=== PATIENT | female | born 1975 | race Caucasian/White ===

== ENCOUNTER 2021-02-07 18:41 | Inpatient (IN) | payer SELFPAY ==
[2021-02-07] VITALS (25 sets, daily range): BP systolic 125–169; BP diastolic 79–96; PULSE 80–99; RESP 11–29; TEMP 37.5; O2SAT 97–100
--- NOTE | ~2021-02-07 | US_ITS ---
EXAMINATION: US abdomen limited EXAM DATE: 02/08/2021 14:46 INDICATION: Pancreatitis/Abnormal LFT's. TECHNIQUE: Multiple grayscale and Doppler images of the abdomen right upper quadrant were obtained (b y a technologist who performed the scan) and subsequently reviewed. There is no prior study for josh sandhu. FINDINGS: The pancreatic head and body are normal in appearance. The pancreatic tail is not visualized. Please note that acute uncomplicated pancreatitis typically does not have ultrasound findings. The liver ochoa s normal echogenicity and contour. There is 1 cm liver cyst. There is no evidence of intrahepatic b iliary duct dilation. Portal venous flow was seen in the hepatopedal, normal direction and has elizabeth l Doppler waveform. No right-sided hydronephrosis. Common bile duct measures 6 mm, which is normal. The gallbladder fossa is unremarkable. IMPRESSION: 1. Unremarkable abdominal ultrasound exam. Reviewed, dictated and finalized at location B.
--- NOTE | ~2021-02-07 | CT_ITS ---
EXAMINATION: CT abdomen pelvis w con DATE: 02/07/2021 21:21 INDICATION: Epigastric abdominal pain. TECHNIQUE: Computed tomography (CT) of the abdomen and pelvis was performed with 100 mL Omnipaque 350 intravenous contrast. Automated exposure control and iterative reconstruction technique were employe d. The dose-length product was 304.46 mGy-cm. COMPARISON: Chest single view 02/07/2021 FINDINGS: The visualized portions of the lung bases demonstrate mild dependent atelectasis. There are mild peripheral airspace opacities in right lower lobe. No pleural effusion. The heart size is elizabeth l. No pericardial effusion. There is a 10 mm cyst in the liver. There are changes of cholecystectomy. The spleen is normal. There is fat stranding around the pancreas, consistent with acute interstitial pancreatitis. The adrenal glands and kidneys are normal. There are no dilated loops of bowel. The ap pendix is normal. There is a small volume of ascites. There are no pathologically enlarged lymph node s. The bones are unremarkable. IMPRESSION: 1. Acute interstitial pancreatitis. 2. Mild peripheral airspace opacities in right lung lower lobe, consistent with pneumonia. 3. Small volume of ascites. Reviewed, dictated and finalized at location A.
--- NOTE | ~2021-02-07 | XR_ITS ---
EXAMINATION: XR chest 1V portable DATE: 02/07/2021 20:02 INDICATION: Shortness of breath. COVID-19 pneumonia. TECHNIQUE: A single frontal view of the chest was obtained. COMPARISON: None. FINDINGS: There is mild scarring at the lung apices. There are mild airspace opacities in right perih ilar region. No pleural effusion or pneumothorax. The heart size is normal. IMPRESSION: 1. Mild airspace opacities in right perihilar region, consistent with pneumonia. 2. Mild scarring at the lung apices. Reviewed, dictated and finalized at location A. IMPRESSION: 1. Mild airspace opacities in right perihilar region, consistent with pneumonia . 2. Mild scarring at the lung apices.
[2021-02-07 19:24] LABS: Hematocrit 35.1 % (37.0-47.0); Hemoglobin 12.6 g/dL (12.0-15.0); Mean Corpuscular HGB Conc 35.9 g/dl (32-36); Mean Corpuscular Hemoglobin 32.5 pg (26-34); Mean Corpuscular Volume 90.5 fl (80-100); Mean Platelet Volume 8.1 fl (7.4-10.4); Platelet Count Result 327 k/mm3 (150-375); Red Blood Count 3.88 M/mm3 (4.2-5.4); White Blood Count 22.5 K/mm3 (4.5-10.0)
[2021-02-07 19:44] LABS: Monocytes Absolute Manual 0.67 K/mm3 (0.1-0.90); Monocytes Percent Manual 3 % (3-9); Neutrophils Percent Manual 81 % (46-73); Total Cells Counted 100
[2021-02-07 19:45] LABS: Platelet Estimate Adequate (Adequate); Smudge Cells FEW
[2021-02-07 19:48] LABS: Alanine Aminotransferase 90 U/L (4-35); Albumin Level 3.4 g/dL (3.5-5.1); Alkaline Phosphatase 110 U/L (38-126); Anion Gap 8 mmol/L (8-16); Aspartate Amino Transferase 106 U/L (14-36); Bilirubin,Total 0.5 mg/dL (0.2-1.3); Blood Urea Nitrogen 10 mg/dL (7-17); Calcium 8.5 mg/dL (8.4-10.2); Carbon Dioxide 30 mmol/L (22-30); Chloride 98 mmol/L (98-107); Estimated CRCL calculation 126 ml/min; Estimated Glomerular Filt Rate > 60; Glucose 84 mg/dL (65-110); Lipase 835 U/L (23-300); Potassium 2.4 mmol/L (3.4-5.0); Sodium 136 mmol/L (137-145)
[2021-02-07 19:54] LABS: Add Urine Microscopic? NO; Appearance Urine Clear (Clear); Bilirubin Urine Negative (Negative); Blood Urine Negative (Negative); Color Urine Straw (Yellow); Glucose Urine UA Negative (Negative); Ketones Urine Negative (Negative); Leukocyte Esterase Ur Negative LEU/UL (Negative); Nitrate Urine Negative (Negative); Protein Urine Negative (Negative); Urobilinogen Urine Negative mg/dL (<2.0)
[2021-02-07] MEDS: SODIUM CHLORIDE 0.9% IV 1,000 ML 125 ML (20:44)
--- NOTE | 2021-02-07 20:59 | PC.NURSE ---
Pt has hx of total hysterectomy. No test needed
[2021-02-07] MEDS: MORPHINE SULFATE (*CRX) 4 MG/ML INJ IV PUSH (21:12)
[2021-02-07] MEDS: ONDANSETRON INJ 4 MG/2 ML VIAL IV PUSH (21:12)
[2021-02-07] MEDS: HYDROmorphone HCL INJ (*CRX) 1 MG/ML SYR IV PUSH (21:46)
--- NOTE | 2021-02-07 22:18 | ED.GENADULT ---
HPI - General Adult General Chief complaint: Nausea/Vomiting/Diarrhea Stated complaint: Complications of COVID Time Seen by Provider: 02/07/21 19:47 Source: patient Mode of arrival: ambulatory Limitations: no limitations History of Present Illness HPI narrative: 45-year-old with history of pancreatitis, diagnosed with Covid on 818 here with complaints of cough shortness of breath upper abdominal pain associated with some nausea and vomiting for past few days. Patient thinks her prior pancreatitis is acting up again. She denies alcohol use. No history of fever or chills. Onset (ago): day(s) (1) Location: abdomen Radiation: non-radiation Severity: moderate Quality: aching Pain Consistency: constant Relieving factors: none Exacerbating factors: none Associated symptoms: nausea/vomiting and shortness of breath Related Data Allergies Allergy/AdvReac Type Severity Reaction Status Date / Time No Known Allergies Allergy Verified 02/07/21 20:07 Review of Systems Review of Systems: All systems reviewed & are unremarkable except as noted in HPI and below Constitutional: Constitutional: Reports no additional constitutional complaints Eyes: Eyes: Reports no additional eye complaints ENT: Reports system reviewed and no additional complaints, except as documented Cardiovascular: Cardiovascular: Reports no additional cardiovascular complaints Respiratory: Respiratory: Reports as per HPI Gastrointestinal: Gastrointestinal: Reports as per HPI Musculoskeletal: Musculoskeletal: Reports no additional musculoskeletal complaints Integumentary/Breasts: Skin/Breast: Reports system reviewed and no additional complaints, except as docu Exam Narrative: GENERAL: Well-appearing, well-nourished, tearful HEAD: Normocephalic, atraumatic. EYES: PERRLA and EOMI. NECK: Supple. CHEST: Clear to auscultation. No respiratory distress. HEART: Regular rate and rhythm. No murmur heard. Normal peripheral pulses. ABDOMEN: Soft, tender in epigastric area, nondistended, normal active bowel sounds. EXTREMITIES: Normal range of motion. No edema. SKIN: Warm, dry, no rash. NEURO: No focal deficits. Alert and oriented x3. PSYCH: Normal mood and affect. Course Course Emergency Course: She was given morphine and Dilaudid for pain control. She was informed about her lab work and CT findings. Will admit to the hospital for pain control and correcting her potassium. Discussed with Dr. Toro agreed to admit the patient. Chest x-ray consistent with pneumonia with elevated white count we will start her on IV Rocephin and Zithromax. Vital Signs Vital signs: Vital Signs Temperature 37.5 C 02/07/21 18:50 Pulse Rate 94 02/07/21 18:50 Respiratory Rate 18 02/07/21 18:50 Blood Pressure 158/82 H 02/07/21 18:50 Pulse Oximetry 98 02/07/21 18:50 Temperature 37.5 C 02/07/21 18:50 Pulse Rate 81 02/07/21 21:02 Respiratory Rate 18 02/07/21 21:02 Blood Pressure 125/79 02/07/21 21:02 Pulse Oximetry 100 02/07/21 21:02 Medical Decision Making Vital Signs Vital Signs: Vital Signs Temperature 37.5 C 02/07/21 18:50 Pulse Rate 94 02/07/21 18:50 Respiratory Rate 18 02/07/21 18:50 Blood Pressure 158/82 H 02/07/21 18:50 Pulse Oximetry 98 02/07/21 18:50 Temperature 37.5 C 02/07/21 18:50 Pulse Rate 81 02/07/21 21:02 Respiratory Rate 18 02/07/21 21:02 Blood Pressure 125/79 02/07/21 21:02 Pulse Oximetry 100 02/07/21 21:02 Lab Data Result diagrams: 02/07/21 19:15 02/07/21 19:15 Labs: Lab Results 02/07/21 02/07/21 02/07/21 Range/Units 19:15 19:15 19:47 WBC 22.5 H (4.5-10.0) K/mm3 RBC 3.88 L (4.2-5.4) M/mm3 Hgb 12.6 (12.0-15.0) g/dL Hct 35.1 L (37.0-47.0) % MCV 90.5 (80-100) fl MCH 32.5 (26-34) pg MCHC 35.9 (32-36) g/dl RDW 14.0 (11.5-14.5) % Plt Count 327 (150-375) k/mm3 MPV 8.1 (7.4-10.4) fl Immature Gran %
[2021-02-07] MEDS: HYDROmorphone HCL INJ (*CRX) 1 MG/ML SYR 0.5 MG IV PUSH (23:35)
--- NOTE | 2021-02-07 23:40 | PC.NURSE ---
Blood cultures drawn and sent peripherally prior to antibiotic administration
[2021-02-08] VITALS (10 sets, daily range): BP systolic 110–149; BP diastolic 66–88; PULSE 80–100; RESP 14–18; TEMP 36.5–37.1; O2SAT 95–99; BMI 25.2
--- NOTE | 2021-02-08 00:46 | ADMGEN ---
This patient, Steff Fu, was admitted to 3 [facility] Surg Room 310-01. Patient/family oriented to hospital policies and general routines including ID bracelet, bed and alarms, visiting hours, pain management, procedures, bathroom and other care routines, personal items, smoking policy, room service/diet, and visiting hours. Information on how to activate the Rapid Response Team has been discussed. Patient/Family are encouraged to report perceived risks to care and to ask questions if they do not understand what they are told or what they should do.
[2021-02-08] MEDS: SODIUM CHLORIDE 0.9% IV 1,000 ML 125 ML IV CONT ×4 (00:56→23:30)
[2021-02-08] MEDS: HYDROmorphone HCL INJ (*CRX) 1 MG/ML SYR IV PUSH ×7 (02:46→23:23)
--- NOTE | 2021-02-08 02:59 | PM.IMHP ---
H&P: HPI History of Present Illness Date/Time: 02/08/21 02:59 Chief Complaint: Epigastric pain Narrative: This is a 45-year-old female with past medical history significant for COPD/emphysema, tobacco dependence, chronic pancreatitis. Patient tested positive for COVID on January 23 both her and her , she has had muscle aches body aches, fevers, chills, cough productive of greenish sputum, poor appetite, generalized malaise, epigastric pain with radiation to the back and is a burning sensation relieved only by pain medication she has not been able to keep anything down or to eat due to the pain she has had pancreatitis in the past and thought that she should better be checked up after it did not improve and got worse over the course of the day. Preliminary workup was significant for chest x-ray with infiltrates and CT of abdomen and pelvis with interstitial pancreatitis, slightly elevated LFTs. Review of Systems Review of Systems: Epigastric pain generalized malaise body aches fevers chills Constitutional: Constitutional: Reports chills, Reports fatigue, Reports fever(s), Reports lethargy, Reports malaise, Reports poor appetite and Reports weakness Eyes: Eyes: Denies change in vision ENT: Denies dysphagia, Denies nasal congestion, Denies nasal discharge, Denies nasal obstruction and Denies odynophagia Cardiovascular: Cardiovascular: Denies irregular heart rhythm, Denies claudication, Denies lightheadedness, Denies radiating jaw, neck or arm pain, Denies palpitations, Denies dyspnea on exertion and Denies orthopnea Respiratory: Respiratory: Reports change in phlegm color and Reports cough Gastrointestinal: Gastrointestinal: Reports abdominal pain, Denies diarrhea, Reports nausea and Denies vomiting Genitourinary: Genitourinary: Reports no additional female genitourinary complaints Musculoskeletal: Musculoskeletal: Reports myalgias Integumentary/Breasts: Skin/Breast: Reports system reviewed and no additional complaints, except as docu Neurologic: Reports system reviewed and no additional complaints, except as documented Psychiatric: Psychiatric: Reports no additional psychiatric complaints Endocrine: Endocrine: Reports no additional endocrine complaints Hematologic/Lymphatic: Hematologic/Lymphatic: Reports no additional hematologic/lymphatic complaints Allergic/Immunologic: Allergic/Immunologic: Reports no additional allergic/immunologic complaints [facility] Family History Family History (Updated 02/08/21 @ 00:17 by Yolanda Torres RN) Mother Acute myocardial infarction Hx of CABG Social History Social History Smoking packs per day: 0.25 Smoking cigarettes per day: 5.0 Smoking status: Current every day smoker Tobacco type: cigarettes Alcohol intake: current Drinks per week: 1 Substance use type: does not use Gender identity (if verbalized by the patient): Female Sexual Orientation (if Verbalized by the Patient): Straight or Heterosexual Spiritual care concerns: No Meds Home Medications and Allergies Home Medications Medication Instructions Recorded Confirmed Type albuterol sulfate 2 puff INHALATION Q4-6H PRN 02/08/21 02/08/21 History alprazolam 0.5 mg PO BID PRN 02/08/21 02/08/21 History hydrocodone-acetaminophen 1 tablet PO Q4-6H PRN 02/08/21 02/08/21 History losartan 50 mg PO DAILY 02/08/21 02/08/21 History Allergies Allergy/AdvReac Type Severity Reaction Status Date / Time No Known Allergies Allergy Verified 02/07/21 20:07 Vital Signs Vital Signs - 24 hr 02/07/21 18:50 02/07/21 19:54 02/07/21 19:57 Temperature 99.5 F Pulse Rate 94 99 97 Respiratory Rate 18 17 11 L Blood Pressure 158/82 H Pulse Oximetry 98 100 02/07/21 20:06 02/07/21 20:09 02/07/21 20:23 Temperature Pulse Rate 89 98 Respiratory Rate 26 H 29 H Blood Pressure Pulse Oximetry 97 02/07/21 20:30 02/07/21 20:40 02/07/21 2
[2021-02-08 07:02] LABS: Basophils Percent Auto 0.2 % (0.2-1.2); Eosinophils Absolute Auto 0.1 K/mm3 (0-0.3); Eosinophils Percent Auto 0.6 % (0-4.4); Hematocrit 31.9 % (37.0-47.0); Hemoglobin 11.3 g/dL (12.0-15.0); Immature Granulocyte Absolute 0.32 K/mm3 (0.00-0.031); Immature Granulocyte Percent A 1.8 % (0-0.5); Lymphocytes Absolute Auto 4.78 K/mm3 (0.9-3.2); Lymphocytes Percent Auto 27.6 % (18.3-44.2); Mean Corpuscular HGB Conc 35.4 g/dl (32-36); Mean Corpuscular Hemoglobin 32.5 pg (26-34); Mean Corpuscular Volume 91.7 fl (80-100); Mean Platelet Volume 8.3 fl (7.4-10.4); Monocytes Absolute Auto 0.8 K/mm3 (0.1-0.6); Monocytes Percent Auto 4.3 % (2.6-8.5); Neutrophils Absolute Auto 11.3 K/mm3 (1.3-6.7); Neutrophils Percent Auto 65.5 % (45.5-73.1); Platelet Count Result 276 k/mm3 (150-375); Red Blood Count 3.48 M/mm3 (4.2-5.4); Red Cell Distribution Width 14.1 % (11.5-14.5); White Blood Count 17.3 K/mm3 (4.5-10.0)
[2021-02-08 07:26] LABS: Alanine Aminotransferase 155 U/L (4-35); Albumin Level 2.9 g/dL (3.5-5.1); Alkaline Phosphatase 144 U/L (38-126); Anion Gap 2 mmol/L (8-16); Aspartate Amino Transferase 280 U/L (14-36); Bilirubin,Total 1.6 mg/dL (0.2-1.3); Blood Urea Nitrogen 6 mg/dL (7-17); Calcium 7.8 mg/dL (8.4-10.2); Carbon Dioxide 34 mmol/L (22-30); Chloride 98 mmol/L (98-107); Estimated CRCL calculation 126 ml/min; Estimated Glomerular Filt Rate > 60; Glucose 102 mg/dL (65-110); Lipase 420 U/L (23-300); Potassium 2.7 mmol/L (3.4-5.0); Sodium 134 mmol/L (137-145)
[2021-02-08] MEDS: ONDANSETRON INJ 4 MG/2 ML VIAL IV PUSH ×2 (07:54→11:49)
[2021-02-08] MEDS: ALPRAZolam (*CRX) 0.5 MG TABLET PO ×2 (09:03→21:17)
[2021-02-08] MEDS: LOSARTAN POTASSIUM 50 MG TABLET PO (09:04)
[2021-02-08] MEDS: ENOXAPARIN 40 MG/0.4 ML SYRINGE SUB-Q (09:05)
[2021-02-08] MEDS: POTASSIUM CHLORIDE 20 MEQ TABLET 40 MEQ PO (09:17)
--- NOTE | 2021-02-08 11:42 | ECG_ITS ---
Measurements Intervals Thomas Rate: 83 P: 9 MA: 138 QRS: 46 QRSD: 81 T: 39 QT: 375 QTc: 442 Interpretive Statements SINUS RHYTHM NORMAL ECG Electronically Signed On 02-08-2021 13:33:38 CDT by Librado Pennington D.O.
--- NOTE | 2021-02-08 11:42 | PM.IMPN ---
Progress Note: A&P Assessment and Plan (1) Community acquired pneumonia: Code(s): J18.9 - Pneumonia, unspecified organism Status: Acute Assessment and Plan: Recent illness with COVID-19 pneumonia. CXR shows airspace opacities in the right perihilar region consistent with pneumonia. She has increased leukocytosis and green sputum. Overall clinical picture appears consistent with secondary bacterial pneumonia. She has been started on azithromycin and ceftriaxone. Sputum culture has been ordered and will await results. Urine Legionella and pneumococcal antigens have been ordered. Supportive care to include bronchodilators, expectorants, and incentive spirometry (2) COVID-19: Code(s): U07.1 - COVID-19 Status: Acute Assessment and Plan: She had a positive COVID-19 test on January 23. She completed a course of steroids prescribed by her PCP. Given onset of illness, she no longer requires any COVID-19 specific treatment or isolation. She is maintaining adequate oxygenation on room air. (3) Acute pancreatitis: Code(s): K85.90 - Acute pancreatitis without necrosis or infection, unspecified Status: Acute Assessment and Plan: Lipase elevated at [address] abdomen/pelvis showed acute interstitial pancreatitis. She endorses significant epigastric pain. Lipase has improved to 420 today with bowel rest. Continue IV fluids. Advanced to clear liquids, she is comfortable trying ice water at this time and will advance as she feels improved. Continue antiemetics and analgesics. RUQ US pending She reports that she has had 2 additional episodes of pancreatitis over the past 6 weeks, seems to be idiopathic based on prior workups completed. She does not drink alcohol. Does not appear to be on any medications that contribute to pancreatitis. She had a cholecystectomy in 1997. She has been seen by GI in [place] but missed her follow-up appointment due to COVID-19 quarantine. Given her history, will consider GI consultation if she is not improving over the next 12-24 hours. She may ultimately benefit from evaluation by a pancreatic specialist given recurrence. (4) Abnormal LFTs (liver function tests): Code(s): R94.5 - Abnormal results of liver function studies Status: Acute Assessment and Plan: May be related to acute pancreatitis. Awaiting RUQ US. Continue to trend LFTs. (5) Acute hypokalemia: Code(s): E87.6 - Hypokalemia Status: Acute Assessment and Plan: Likely secondary to ongoing diarrhea as well as NPO diet. Potassium was 2.7 this morning. She is receiving 40 mEq IV KCl and was given 40 mg p.o. KCl as well. Repeat this afternoon and continue to supplement as needed. Consider scheduled potassium supplementation if remaining low. Check magnesium. (6) COPD (chronic obstructive pulmonary disease): Code(s): J44.9 - Chronic obstructive pulmonary disease, unspecified Status: Acute Assessment and Plan: Not in acute exacerbation. No wheezing on exam. Albuterol inhaler prn. (7) Tobacco dependence: Code(s): F17.200 - Nicotine dependence, unspecified, uncomplicated Status: Acute Assessment and Plan: She smokes 5 cigarettes per day. Denies need for nicotine patch at this time. Smoking cessation has discussed. She has been weaning down her cigarette use with the intention of quitting. (8) Hypertension: Code(s): I10 - Essential (primary) hypertension Status: Acute Assessment and Plan: Blood pressure reviewed and was elevated on presentation, which was likely due to pain. Improving overall. Last BP 110/66. Continue losartan. Subjective Date/time seen: 02/08/21 11:42 Interval history: Date of service: 02/08/2021 Steff Fu is a 45 year old female with a history of pancreatitis 2 times over the past 6 weeks, hypertension, anxiety, and recent COVID-19 pneumo
[2021-02-08] MEDS: HYDROcodone/acetaminophen (*CRX) 10-325 MG TABLET 1 TAB PO (11:49)
[2021-02-08] MEDS: NYSTATIN 100,000 UNITS/ML SUSP 5 ML ORAL.SUSP PO ×3 (14:29→20:11)
[2021-02-08 19:08] LABS: Potassium 3.6 mmol/L (3.4-5.0)
[2021-02-08 19:55] LABS: HIV 1/2 Ab P24 Ag Result Negative (Negative)
[2021-02-09] VITALS (9 sets, daily range): BP systolic 133–158; BP diastolic 88–98; PULSE 81–98; RESP 14–20; TEMP 36.2–37.1; O2SAT 95–100
[2021-02-09] MEDS: HYDROmorphone HCL INJ (*CRX) 1 MG/ML SYR IV PUSH ×6 (02:30→19:43)
[2021-02-09] MEDS: ENOXAPARIN 40 MG/0.4 ML SYRINGE SUB-Q (08:42)
[2021-02-09] MEDS: SODIUM CHLORIDE 0.9% IV 1,000 ML 125 ML IV CONT (08:42)
[2021-02-09] MEDS: ALPRAZolam (*CRX) 0.5 MG TABLET PO ×2 (08:42→22:06)
[2021-02-09] MEDS: LOSARTAN POTASSIUM 50 MG TABLET PO (08:42)
[2021-02-09] MEDS: NYSTATIN 100,000 UNITS/ML SUSP 5 ML ORAL.SUSP PO ×4 (08:43→20:05)
[2021-02-09 12:10] LABS: Hematocrit 39.1 % (37.0-47.0); Hemoglobin 12.8 g/dL (12.0-15.0); Mean Corpuscular HGB Conc 32.7 g/dl (32-36); Mean Corpuscular Hemoglobin 31.7 pg (26-34); Mean Corpuscular Volume 96.8 fl (80-100); Mean Platelet Volume 8.9 fl (7.4-10.4); Platelet Count Result 218 k/mm3 (150-375); Red Blood Count 4.04 M/mm3 (4.2-5.4); Red Cell Distribution Width 14.6 % (11.5-14.5); White Blood Count 13.2 K/mm3 (4.5-10.0)
[2021-02-09 12:26] LABS: Alanine Aminotransferase 117 U/L (4-35); Albumin Level 3.4 g/dL (3.5-5.1); Alkaline Phosphatase 208 U/L (38-126); Anion Gap 7 mmol/L (8-16); Aspartate Amino Transferase 67 U/L (14-36); Bilirubin,Total 1.5 mg/dL (0.2-1.3); Blood Urea Nitrogen 2 mg/dL (7-17); Calcium 8.3 mg/dL (8.4-10.2); Carbon Dioxide 27 mmol/L (22-30); Chloride 101 mmol/L (98-107); Estimated CRCL calculation 126 ml/min; Estimated Glomerular Filt Rate > 60; Glucose 92 mg/dL (65-110); Lipase 350 U/L (23-300); Potassium 3.1 mmol/L (3.4-5.0); Sodium 135 mmol/L (137-145)
--- NOTE | 2021-02-09 14:51 | PM.IMPN ---
Progress Note: A&P Assessment and Plan (1) Community acquired pneumonia: Code(s): J18.9 - Pneumonia, unspecified organism Status: Acute Assessment and Plan: Recent illness with COVID-19 pneumonia. CXR showed airspace opacities in the right perihilar region consistent with pneumonia. She had increased leukocytosis and green sputum. Overall clinical picture appears consistent with secondary bacterial pneumonia. Continue azithromycin and ceftriaxone Sputum culture pending Urine pneumococcal and Legionella antigens pending Supportive care to include bronchodilators, expectorants, and incentive spirometry (2) COVID-19: Code(s): U07.1 - COVID-19 Status: Acute Assessment and Plan: She had a positive COVID-19 test on January 23. She completed a course of steroids prescribed by her PCP. Given onset of illness, she no longer requires any COVID-19 specific treatment or isolation. She is maintaining adequate oxygenation on room air. (3) Acute pancreatitis: Code(s): K85.90 - Acute pancreatitis without necrosis or infection, unspecified Status: Acute Assessment and Plan: Lipase elevated at [address] abdomen/pelvis showed acute interstitial pancreatitis. She endorses epigastric pain. Lipase has improved to 350 today. Advanced to low-fat diet. Continue antiemetics and analgesics. Will discontinue IV fluids as she is tolerating p.o. intake. Right upper quadrant ultrasound was unremarkable. She reports that she has had 2 additional episodes of pancreatitis over the past 6 weeks, seems to be idiopathic based on prior workups completed. She does not drink alcohol. Does not appear to be on any medications that contribute to pancreatitis. She had a cholecystectomy in 1997. She has been seen by GI in [place] but missed her follow-up appointment due to COVID-19 quarantine. She may ultimately benefit from evaluation by a pancreatic specialist given recurrence. (4) Abnormal LFTs (liver function tests): Code(s): R94.5 - Abnormal results of liver function studies Status: Acute Assessment and Plan: May be related to acute pancreatitis. RUQ ultrasound unremarkable with normal common bile duct measurements. AST and ALT improved. Total bili still elevated at 1.5. Will evaluate hepatitis panel. Continue to trend LFTs. (5) Acute hypokalemia: Code(s): E87.6 - Hypokalemia Status: Acute Assessment and Plan: Likely secondary to diarrhea and decreased p.o. intake. Improving. Potassium 3.1 this morning. Administer 40 mEq p.o. KCl. Repeat BMP tomorrow and supplement potassium as needed (6) COPD (chronic obstructive pulmonary disease): Code(s): J44.9 - Chronic obstructive pulmonary disease, unspecified Status: Acute Assessment and Plan: Not in acute exacerbation. No wheezing on exam. Albuterol inhaler prn. (7) Tobacco dependence: Code(s): F17.200 - Nicotine dependence, unspecified, uncomplicated Status: Acute Assessment and Plan: She smokes 5 cigarettes per day. Denies need for nicotine patch at this time. Smoking cessation has been discussed. She has been weaning down her cigarette use with the intention of quitting. (8) Hypertension: Code(s): I10 - Essential (primary) hypertension Status: Acute Assessment and Plan: Blood pressure reviewed and was elevated on presentation, which was likely due to pain. Slowly improving. Last BP 142/88. Continue losartan. (9) Oral candidiasis: Code(s): B37.0 - Candidal stomatitis Status: Acute Assessment and Plan: She h presented with white patches on the buccal mucosa and oropharynx, appears consistent with oral candidiasis. Likely due to recent steroid use. She is not on any immunosuppresive therapy. HIV screening negative. Continue nystatin swish and swallow. Subjective Date/time seen:
[2021-02-09] MEDS: POTASSIUM CHLORIDE 20 MEQ TABLET 40 MEQ PO (16:33)
[2021-02-10] VITALS (8 sets, daily range): BP systolic 141–155; BP diastolic 83–97; PULSE 74–97; RESP 12–18; TEMP 36.2–36.9; O2SAT 97–99
[2021-02-10] MEDS: HYDROmorphone HCL INJ (*CRX) 1 MG/ML SYR IV PUSH ×4 (00:50→20:14)
[2021-02-10 07:05] LABS: Hematocrit 37.6 % (37.0-47.0); Hemoglobin 12.8 g/dL (12.0-15.0); Mean Corpuscular Hemoglobin 32.2 pg (26-34); Mean Corpuscular Volume 94.5 fl (80-100); Mean Platelet Volume 8.6 fl (7.4-10.4); Platelet Count Result 198 k/mm3 (150-375); Red Blood Count 3.98 M/mm3 (4.2-5.4); Red Cell Distribution Width 14.5 % (11.5-14.5); White Blood Count 10.7 K/mm3 (4.5-10.0)
[2021-02-10] MEDS: NYSTATIN 100,000 UNITS/ML SUSP 5 ML ORAL.SUSP PO ×4 (09:00→20:14)
[2021-02-10] MEDS: LOSARTAN POTASSIUM 50 MG TABLET PO (09:00)
[2021-02-10] MEDS: ENOXAPARIN 40 MG/0.4 ML SYRINGE SUB-Q (09:00)
[2021-02-10] MEDS: ALPRAZolam (*CRX) 0.5 MG TABLET PO ×2 (09:05→21:51)
[2021-02-10 09:28] LABS: Hepatitis B Surface Antigen Negative (Negative)
[2021-02-10 09:33] LABS: HAV RESULT Negative (Negative); Hepatitis B Core IgM Result Negative (Negative)
[2021-02-10 09:45] LABS: Hepatitis C Virus Antibody Negative (Negative)
--- NOTE | 2021-02-10 11:06 | PM.IMPN ---
Progress Note: A&P Assessment and Plan (1) Community acquired pneumonia: Code(s): J18.9 - Pneumonia, unspecified organism Status: Acute Assessment and Plan: Recent illness with COVID-19 pneumonia. CXR showed airspace opacities in the right perihilar region consistent with pneumonia. She had increased leukocytosis and green sputum. Overall clinical picture is consistent with secondary bacterial pneumonia. Continue azithromycin and ceftriaxone Sputum culture with yeast which is due to oral candidiasis and otherwise normal oropharyngeal kami. Urine pneumococcal and Legionella antigens pending Supportive care to include bronchodilators, expectorants, and incentive spirometry (2) COVID-19: Code(s): U07.1 - COVID-19 Status: Acute Assessment and Plan: She had a positive COVID-19 test on January 23. She completed a course of steroids prescribed by her PCP. Given onset of illness, she no longer requires any COVID-19 specific treatment or isolation. She is maintaining adequate oxygenation on room air. Continue with supportive care. (3) Acute pancreatitis: Code(s): K85.90 - Acute pancreatitis without necrosis or infection, unspecified Status: Acute Assessment and Plan: Lipase elevated at [address] abdomen/pelvis showed acute interstitial pancreatitis. She endorses epigastric pain. Lipase improved to 350, repeat lipase today is still pending (lab issue). Advanced to low-fat diet and she is tolerating this well. IV fluids discontinued as she is tolerating p.o. intake. Right upper quadrant ultrasound was unremarkable. Hopeful discharge tomorrow if improvement in epigastric pain. Weaning IV analgesics and transitioning to PO. She reports that she has had 2 additional episodes of pancreatitis over the past 6 weeks, seems to be idiopathic based on prior workups completed. She does not drink alcohol. Does not appear to be on any medications that contribute to pancreatitis. She had a cholecystectomy in 1997. She has been seen by GI in [place] but missed her follow-up appointment due to COVID-19 quarantine. She may ultimately benefit from evaluation by a pancreatic specialist given recurrence. She will need to reschedule her appointment with GI. (4) Abnormal LFTs (liver function tests): Code(s): R94.5 - Abnormal results of liver function studies Status: Acute Assessment and Plan: May be related to acute pancreatitis. RUQ ultrasound unremarkable with normal common bile duct measurements. AST and ALT improved from admission. Awaiting repeat labs today. Hepatitis panel negative. Continue to trend LFTs. (5) Acute hypokalemia: Code(s): E87.6 - Hypokalemia Status: Acute Assessment and Plan: Likely secondary to diarrhea and decreased p.o. intake. Labs still pending today. Potassium levels will be evaluated and potassium will be supplemented as needed. (6) COPD (chronic obstructive pulmonary disease): Code(s): J44.9 - Chronic obstructive pulmonary disease, unspecified Status: Acute Assessment and Plan: Not in acute exacerbation. No wheezing on exam. Albuterol inhaler prn. (7) Tobacco dependence: Code(s): F17.200 - Nicotine dependence, unspecified, uncomplicated Status: Acute Assessment and Plan: She smokes 5 cigarettes per day. Denies need for nicotine patch at this time. Smoking cessation has been discussed. She has been weaning down her cigarette use with the intention of quitting. (8) Hypertension: Code(s): I10 - Essential (primary) hypertension Status: Acute Assessment and Plan: Blood pressure reviewed and has been slightly elevated above target, likely due to pain. Last BP 155/96. Continue losartan. (9) Oral candidiasis: Code(s): B37.0 - Candidal stomatitis Status: Acute Assessment and Plan: She presented with white patches
[2021-02-10] MEDS: HYDROcodone/acetaminophen (*CRX) 10-325 MG TABLET 1 TAB PO ×3 (11:42→22:29)
[2021-02-10 12:31] LABS: Alanine Aminotransferase 96 U/L (4-35); Albumin Level 3.5 g/dL (3.5-5.1); Alkaline Phosphatase 211 U/L (38-126); Anion Gap 2 mmol/L (8-16); Aspartate Amino Transferase 45 U/L (14-36); Blood Urea Nitrogen 4 mg/dL (7-17); Carbon Dioxide 31 mmol/L (22-30); Chloride 100 mmol/L (98-107); Estimated CRCL calculation 103 ml/min; Estimated Glomerular Filt Rate > 60; Glucose 91 mg/dL (65-110); Lipase 333 U/L (23-300); Potassium 4.1 mmol/L (3.4-5.0); Sodium 133 mmol/L (137-145)
[2021-02-10 17:23] LABS: Pneumococcal Antigen Urine Not Detected (Not Detected)
[2021-02-10 20:20] LABS: GGT 603 U/L (3-55)
[2021-02-11] MEDS: HYDROmorphone HCL INJ (*CRX) 1 MG/ML SYR IV PUSH (04:12)
[2021-02-11 06:00] VITALS: BP 138/80; PULSE 84; RESP 18; TEMP 35.9; O2SAT 98
[2021-02-11 07:26] LABS: Hematocrit 36.5 % (37.0-47.0); Hemoglobin 12.4 g/dL (12.0-15.0)
[2021-02-11 07:52] LABS: Alanine Aminotransferase 63 U/L (4-35); Albumin Level 3.4 g/dL (3.5-5.1); Alkaline Phosphatase 199 U/L (38-126); Anion Gap 6 mmol/L (8-16); Aspartate Amino Transferase 33 U/L (14-36); Bilirubin,Total 0.6 mg/dL (0.2-1.3); Blood Urea Nitrogen 7 mg/dL (7-17); Carbon Dioxide 26 mmol/L (22-30); Chloride 103 mmol/L (98-107); Estimated CRCL calculation 103 ml/min; Estimated Glomerular Filt Rate > 60; Glucose 101 mg/dL (65-110); Sodium 135 mmol/L (137-145)
[2021-02-11] MEDS: HYDROcodone/acetaminophen (*CRX) 10-325 MG TABLET 1 TAB PO (08:12)
[2021-02-11] MEDS: ALPRAZolam (*CRX) 0.5 MG TABLET PO (08:12)
[2021-02-11] MEDS: LOSARTAN POTASSIUM 50 MG TABLET PO (08:13)
[2021-02-11] MEDS: ENOXAPARIN 40 MG/0.4 ML SYRINGE SUB-Q (08:13)
[2021-02-11] MEDS: NYSTATIN 100,000 UNITS/ML SUSP 5 ML ORAL.SUSP PO (08:13)
[2021-02-11 09:12] LABS: Legionella pneumophila Ag Ur Not Detected (Not Detected)
--- NOTE | 2021-02-11 11:16 | PM.DS ---
DS: Admitting Diagnosis Admitting Diagnosis Epigastric pain DS: Discharge Diagnosis Discharge Diagnosis (1) Community acquired pneumonia: Code(s): J18.9 - Pneumonia, unspecified organism Status: Acute Assessment and Plan: Recent illness with COVID-19 pneumonia. CXR showed airspace opacities in the right perihilar region consistent with pneumonia. She had increased leukocytosis and green sputum. Overall clinical picture consistent with secondary bacterial pneumonia. Completed 5 days of IV azithromycin. Completed 5 days of IV ceftriaxone and will continue with cefdinir as an outpatient to complete a 7 day course. Sputum culture with yeast which is due to oral candidiasis and otherwise normal oropharyngeal kami. Urine pneumococcal and Legionella antigens negative Blood cultures pending with preliminary results negative today. Final cultures will be monitored Supportive care to include bronchodilators, expectorants, and incentive spirometry She maintain adequate oxygen saturations on room air throughout duration of hospitalization Leukocytosis resolved and she remained afebrile. (2) COVID-19: Code(s): U07.1 - COVID-19 Status: Acute Assessment and Plan: She had a positive COVID-19 test on January 23. She completed a course of steroids prescribed by her PCP. Given onset of illness and lack of hypoxia, she did not require COVID-19 specific treatment including dexamethasone or remdesivir. She maintained adequate oxygenation on room air. Continue with supportive care as described above (3) Acute pancreatitis: Code(s): K85.90 - Acute pancreatitis without necrosis or infection, unspecified Status: Acute Assessment and Plan: Lipase elevated at [address] abdomen/pelvis showed acute interstitial pancreatitis. She endorsed epigastric pain. Lipase improved to 330 and diet was advanced to low-fat, which she was able to tolerate without difficulty. She was rehydrated with IV fluids and able to tolerate p.o. intake. Right upper quadrant ultrasound was unremarkable. She reports that she has had 2 additional episodes of pancreatitis over the past 6 weeks, seems to be idiopathic based on prior workups completed. She does not drink alcohol. Does not appear to be on any medications that contribute to pancreatitis. She had a cholecystectomy in 1997. She has been seen by GI in [place] but missed her follow-up appointment due to COVID-19 quarantine. She may ultimately benefit from evaluation by a pancreatic specialist given recurrence. She will need to reschedule her appointment with GI. (4) Abnormal LFTs (liver function tests): Code(s): R94.5 - Abnormal results of liver function studies Status: Acute Assessment and Plan: May be related to acute pancreatitis. RUQ ultrasound unremarkable with normal common bile duct measurements. AST normalized an ALT significantly improved. ALP remained elevated, though with slight improvement. Hepatitis panel negative. Repeat CMP in 1 week for further monitoring and follow-up with GI as scheduled. (5) Acute hypokalemia: Code(s): E87.6 - Hypokalemia Status: Acute Assessment and Plan: Likely secondary to diarrhea and decreased p.o. intake. Potassium was monitored and replaced. Level stabilized. Potassium 4.0 time of discharge. (6) COPD (chronic obstructive pulmonary disease): Code(s): J44.9 - Chronic obstructive pulmonary disease, unspecified Status: Acute Assessment and Plan: Not in acute exacerbation. No wheezing on exam. Continue albuterol inhaler p.r.n. (7) Tobacco dependence: Code(s): F17.200 - Nicotine dependence, unspecified, uncomplicated Status: Acute Assessment and Plan: She smokes 5 cigarettes per day. Denied need for nicotine patch during hospital stay. Smoking cessation discussed. She has been weaning down her cigarette use
== END 2021-02-11 12:20 | disposition home or self-care (01) | DRG 139 ==
LOC: ANHED 22:24 → ANH3MEDSUR 02-08 02:19
PROVIDERS: Admitting Provider Internal Medicine; Emergency Provider Family Medicine; Visit Provider Physician Assistant
DX: J15.9 Unspecified bacterial pneumonia (principal); K85.90 Acute pancreatitis without necrosis or infection, unspecified; J43.9 Emphysema, unspecified; B94.8 Sequelae of other specified infectious and parasitic diseases; R94.5 Abnormal results of liver function studies; E87.6 Hypokalemia; F17.210 Nicotine dependence, cigarettes, uncomplicated; B37.0 Candidal stomatitis; I10 Essential (primary) hypertension; F41.9 Anxiety disorder, unspecified; Z79.899 Other long term (current) drug therapy; Z90.49 Acquired absence of other specified parts of digestive tract
CPT/HCPCS: 36415; 71045; 74177; 76705; 80053; 80074; 81003; 82977; 83690; 83735; 84132; 84145; 85014; 85018; 85025; 85027; 86703; 87040; 87070; 87205; 87449; 87899; 93005; 96374; 96375; 99285; A9270; G0432; J0456; J0696; J1170; J1650; J2270; J2405; J3480; J7030; Q9967